=== PATIENT | female | born 1970 | race Caucasian/White ===

== ENCOUNTER 2019-05-19 09:14 | Emergency (ER) | payer OTHER, MEDICARE, MEDICAID, SELFPAY ==
[2019-05-19 09:23] VITALS: BP 135/70; PULSE 90; RESP 18; TEMP 36.2; O2SAT 99
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
[2019-05-19] MEDS: KETOROLAC (*BKC) 60 MG/2 ML VIAL IM (10:37)
[2019-05-19] MEDS: DIAZEPAM 5 MG TABLET PO (10:37)
== END 2019-05-19 11:34 | disposition home or self-care (01) ==
PROVIDERS: Emergency Provider Emergency Medicine
DX: S16.1XXA Strain of muscle, fascia and tendon at neck level, initial encounter (principal); S29.012A Strain of muscle and tendon of back wall of thorax, initial encounter; M79.7 Fibromyalgia; Z87.891 Personal history of nicotine dependence; V67.6XXA Passenger in heavy transport vehicle injured in collision with fixed or stationary object in traffic accident, initial encounter
CPT/HCPCS: 96372; 99283; A9270; J1885

== ENCOUNTER → 2020-01-25 12:59 | Outpatient (CLI) | payer MEDICARE, MEDICAID, SELFPAY ==
--- NOTE | ~2020-01-25 | MR_ITS ---
EXAMINATION: MR shoulder RT wo con DATE: 01/25/2020 13:43 INDICATION: Right shoulder pain TECHNIQUE: Magnetic resonance imaging (MRI) of the right shoulder was performed without intravenous c ontrast. Sequences included axial PD-weighted FS FSE, coronal oblique PD-weighted FS FSE, coronal obl ique T2-weighted FS FSE, sagittal PD-weighted FS FSE, and sagittal T1-weighted SE. COMPARISON: Right shoulder radiographs dated 01/17/2020 FINDINGS: Coracoacromial arch: The acromion undersurface is flat in morphology (type I) with mild lateral downsloping. The coracoacr omial ligament is normal. Mild acromioclavicular osteoarthritis. Rotator cuff: Mild supraspinatus tendinopathy with small predominantly intrasubstance tear measuring 4 mm AP along the superior facet footplate of the supraspinatus tendon. There appears be a small contained indicati on to the bursal surface along the posterior margin of the tear which appears to involve at most one half of the tendon thickness. Mild infraspinatus tendinopathy with mild thinning of the tendon with c onvex contour to the bursal sided fibers near its middle facet footplate consistent with additional s mall partial-thickness intrasubstance tear although no fluid signal intensity tear defect is apprecia manohar. Teres minor and subscapularis tendons are normal. Normal rotator cuff muscle bulk and signal. Biceps tendon, glenoid labrum and glenohumeral cartilage: Long head of the biceps tendon is normal. Tear at the 10:00-11:00 position of the posterior superior glenoid labrum. The posterior labrum is small but without discrete tear. A partial-thickness cartilag e loss with smooth chondral surface along the cephalad aspect of the humeral head. Fluid: Physiologic amount of fluid in the glenohumeral joint and biceps tendon sheath. No loose osteochondra l bodies. Small amount of fluid in the subacromial/subdeltoid bursa as well as the subcoracoid bursa consistent with mild bursitis. Bones: Bone alignment is normal. No fracture or pathologic marrow replacing process. Mild edema and minimal erosive change at the greater tuberosity. IMPRESSION: 1. Mild supraspinatus and infraspinatus tendinopathy with small predominantly intrasubstance tear wit h small bursal sided component at the distal supraspinatus and small mild intrasubstance tear at the distal infraspinatus tendons. 2. Mild glenohumeral osteoarthritis with tear along the posterior superior glenoid labrum. 3. Mild subacromial/subdeltoid and subcoracoid bursitis. Reviewed, dictated and finalized at location A. IMPRESSION: 1. Mild supraspinatus and infraspinatus tendinopathy with small predominantly i ntrasubstance tear with small bursal sided component at the distal supraspinatu s and small mild intrasubstance tear at the distal infraspinatus tendons. 2. Mild glenohumeral osteoarthritis with tear along the posterior superior babita oid labrum. 3. Mild subacromial/subdeltoid and subcoracoid bursitis.
== END ==
PROVIDERS: Visit Provider Orthopaedic Surgery
DX: M19.011 Primary osteoarthritis, right shoulder (principal); M75.51 Bursitis of right shoulder
CPT/HCPCS: 73221

== ENCOUNTER 2020-04-25 00:25 | Outpatient (CLI) | payer OTHER, MEDICARE, MEDICAID, SELFPAY ==
[2020-04-25 17:38] LABS: SARS-CoV-2 RNA PCR Negative
== END 2020-04-25 00:26 | disposition home or self-care (01) ==
LOC: ANHCOVIDDT 00:25
PROVIDERS: Visit Provider Orthopaedic Surgery
DX: Z01.812 Encounter for preprocedural laboratory examination (principal); Z20.822 Contact with and (suspected) exposure to COVID-19
CPT/HCPCS: C9803; U0003; U0005

== ENCOUNTER 2020-04-25 09:46 | Outpatient (CLI) | payer OTHER, MEDICARE, MEDICAID, SELFPAY ==
--- NOTE | 2020-04-25 10:52 | ECG_ITS ---
Measurements Intervals [place] Rate: 91 P: 30 UT: 168 QRS: 19 QRSD: 69 T: -1 QT: 330 QTc: 407 Interpretive Statements SINUS RHYTHM EARLY PRECORDIAL R/S TRANSITION NONSPECIFIC ST & T-WAVE ABNORMALITY- ANT/INF LEADS BASELINE ARTIFACT- I, II, III, AVR, AVL, AVF BORDERLINE ECG Electronically Signed On 04-25-2020 11:22:12 AERIAL ERECTOR by Willie Smith D.O.
== END 2020-04-25 09:47 | disposition home or self-care (01) ==
PROVIDERS: Visit Provider Orthopaedic Surgery
DX: Z01.818 Encounter for other preprocedural examination (principal); I10 Essential (primary) hypertension; R94.31 Abnormal electrocardiogram [ECG] [EKG]
CPT/HCPCS: 93005

== ENCOUNTER 2020-04-29 00:05 | Day surgery (SDC) | payer OTHER, MEDICARE, MEDICAID, SELFPAY ==
[2020-04-25 10:08] VITALS: BP 137/79; PULSE 92; RESP 18; TEMP 36.5; O2SAT 96; BMI 49.4
--- NOTE | 2020-04-28 09:11 | WPDANESEPPF ---
Anes - Initial Pre Proc Eval Procedure: Operation Date: 04/29/20 07:30 Proposed Procedures p Right Arthroscopic Rotator Cuff Repair, Subacromial Decompression - Ronak Quinn MD Date/Time: 04/28/20 09:11 Surgeon: Ronak Quinn MD Pre Op Diagnosis: Partial Rotator Cuff Tear of Right Shoulder Patient Data Age: 49 Gender: F Height: 1.52 m Weight: 114.8 kg Last Vital Signs Temp 36.5 C 04/25/20 10:08 Pulse 92 04/25/20 10:08 Resp 18 04/25/20 10:08 BP 137/79 04/25/20 10:08 Pulse Ox 96 04/25/20 10:08 Allergies Allergy/AdvReac Type Severity Reaction Status Date / Time No Known Allergies Allergy Verified 04/29/20 06:11 Home Medications Medication Instructions Recorded Confirmed Type albuterol sulfate [ProAir HFA] 2 puff INHALATION BID 05/19/19 04/29/20 History bupropion HCl 150 mg PO QAM 05/19/19 04/29/20 History citalopram 40 mg PO QAM 05/19/19 04/29/20 History cyclobenzaprine 5 mg PO HS PRN 05/19/19 04/29/20 History fluticasone propionate 2 spray INTRANASAL QAM PRN 05/19/19 04/29/20 History milnacipran [Savella] 50 mg PO BID 05/19/19 04/29/20 History omeprazole 40 mg PO QAM 05/19/19 04/29/20 History rizatriptan 10 mg PO BID PRN 05/19/19 04/29/20 History topiramate [Topamax] 200 mg PO BID 05/19/19 04/29/20 History hydrocodone-acetaminophen 1 tablet PO QID PRN 04/25/20 04/29/20 History Patient hx anesthesia problems: none Family hx anesthesia problems: none PMFSH Past Medical History Medical History (Updated 04/29/20 @ 06:55 by Santiago Garsia DO) Asthma Chronic, continuous use of opioids Degenerative disc disease Depression DVT (deep venous thrombosis) Fibromyalgia GERD (gastroesophageal reflux disease) Migraine CJ (obstructive sleep apnea) Polycystic ovary syndrome Restless leg syndrome Surgical History Surgical History History of ankle surgery (~2006) Left - Multiple Surgeries, including Fusion History of appendectomy (~10/03/79) History of bilateral carpal tunnel release 2002 & 2003 History of bladder surgery (~09/03/14) Sling History of cervical biopsy 1987 & 2012 History of endometrial ablation (~09/03/14) History of knee surgery Numerous Scopes - Bilateral History of lumpectomy (~09/2018) Breast History of orthopedic surgery History of reconstruction of anterior cruciate ligament tear (~01/08/04) History of total right knee replacement (~2012) Family History Family History Father Diabetes mellitus Acute myocardial infarction Mother Family history of lung cancer Sibling Diabetes mellitus Acute myocardial infarction Family history of sleep apnea Other Family history of malignant neoplasm of breast Social History Social History Smoking packs per day: 1 Smoking cigarettes per day: 20.0 Years smoked: 18 Smoking pack-years: 18.00 Smoking status: Former smoker Smoking end date: 10/02/02 Alcohol intake: former Alcohol use details: DRANK SOCIALLY YOUNG ADULT Substance use: never Living arrangements: alone Gender identity (if verbalized by the patient): Female Spiritual care concerns: No Anes - Eval Final PreProcedure Day of Procedure 04/28/20 09:11 Patient weight: morbidly obese Heart: regular rate and rhythm Lungs: clear to auscultation and normal air movement Airway: Mallampati scale class II Neurological: alert and oriented Last oral intake: >/= 8 hours ASA classification: III Emergent: no Anesthetic plan: proceed Anesthesia type and monitoring: general ETT and standard monitoring Informed Consent: The patient's anesthetic plan and its attendant risks and benefits were discussed with the patient/family/POA. Questions were solicited and answers provided to the satisfaction of the patient/family/POA.
--- NOTE | 2020-04-28 09:12 | WPDANESPNB ---
Anes - Peripheral Nerve Block Date/Time: 04/28/20 09:12 I have discussed with the patient/family/POA the placement of a peripheral nerve block for post-operative pain management, including associated risks, benefits, complications, and side effects. Alternative methods of post-operative analgesia were detailed. Questions were solicited and answers provided to the satisfaction of the patient/family/POA. Time-Out: A pre-procedural Time-Out was completed immediately before starting the procedure and confirmed: Patient Identification, Site, Procedure, Patient Position and the Availability of Requisite Equipment. Clinical Indications: Acute post-operative pain management requested by the operative surgeon. Nerve Block Insertion Note Anes-nerve block: interscalene right Patient position: supine Skin prep: chlorhexidine Needle: 22 gauge, stimulating, insulated echogenic needle. Needle length: 50 mm Technique: ultrasound Injectate: bupivacaine 0.5% with epi 5 mcg/ml (30cc) Observations: tolerated well Complications: none Procedure start time:: 718 Procedure end time:: 721
[2020-04-29] VITALS (10 sets, daily range): BP systolic 102–131; BP diastolic 67–99; PULSE 76–107; RESP 13–22; TEMP 36.4–36.6; O2SAT 90–99; BMI 49.1
[2020-04-29] MEDS: LACTATED RINGERS 1,000 ML 30 ML IV CONT ×2 (06:50→10:11)
[2020-04-29] MEDS: KETOROLAC 15 MG/ML VIAL (*BKC) IV PUSH (06:50)
[2020-04-29] MEDS: ACETAMINOPHEN 500 MG TABLET 1000 MG PO (06:50)
--- NOTE | 2020-04-29 07:18 | WPDHPUPDATE1 ---
History and Physical Update Update Date/Time: 04/29/20 07:18 History and Physical has been reviewed, including an updated exam of the patient. There are NO changes in the patient's condition. Risks, benefits, and alternatives have been discussed and questions answered. Patient agrees to proceed with procedure.
[2020-04-29] MEDS: ceFAZolin 2 GM/D5W 50 ML 2 GM/50 ML BAG IVPB (07:30)
--- NOTE | 2020-04-29 07:54 | SUR.PREOP ---
0490; PT GAVE PHONE NUMBER FOR DAUGHTER GATO. ATTEMPTED TO CALL NUMBER, ROLLS OVER TO AN 800 # WHICH IS LIFELINE. MERCED VARGAS RN NURSE TEAR DOWN MAN NOTIFIED. BRANDIE NUCLEAR WASTE MANAGEMENT ENGINEER NOTIFIED WELL. POSSIBLE NO RIDE HOME.
--- NOTE | 2020-04-29 10:12 | P.OP_ITS ---
Procedure Note - Detailed Date of procedure: 04/29/20 Pre-op diagnosis: Partial Rotator Cuff Tear of Right Shoulder Post-op diagnosis: other (1. Complete rotator cuff tear 2. Type I SLAP tear 3. Subacromial impingment) Procedure performed: 1. Arthrosocopic rotator cuff repair. 2. Arthroscopic subacromial decompression. 3. Arthroscopic SLAP tear debridement. Description of procedure: Inspection revealed a full-thickness supraspinatus tear. No significant retraction. Medium-sized tear treated with 2 bone tunnels and 6 sutures. Rip stop technique utilized with 6 points of fixation and the medial rip stop stitch. The repair was quite benavides. Bone and tissue quality were good. There was evidence for anterolateral impingement, with fraying of the undersurface of the acromion and coracoacromial ligament Decompression performed. Degenerative type 1 slap tear treated with debridement. The remaining labrum and biceps anchor were stable. No other significant abnormalities. Anesthesia: GETA and regional (interscalene block) Surgeon: Ronak Quinn MD [employer] Science Teacher: Charlee Lainez PA-C Estimated blood loss (mL): 20 Complications: None Condition: stable Disposition: PACU Findings: Physician research study assistant, Charlee Lainez PA-C, required for surgery; including patient positioning, draping, arthroscopic camera operation, maintaining instrument position, suture retrieval, wound closure, and dressing and sling placement. Operative detail: Preoperative antibiotics were given. An interscalene block was administered in the preoperative area. The patient was bought brought to the operating room. A general anesthetic was administered. The patient was carefully positioned in the lateral decubitus position. The head and neck were carefully positioned. The non operative extremity was also carefully positioned. The shoulder was prepped and draped in the usual sterile fashion. Examination was performed. The patient was morbidly obese. Standard posterior and anterior arthroscopic portals were established. Inflow achieved with the arthroscopic pump using saline and epinephrine. The glenohumeral joint was carefully inspected. The superior labrum had type 1 tearing. Biceps tendon itself was stable in its groove without evidence of tendinosis or injury. The superior labrum was treated with gentle debridement using the arthroscopic shaver and the radiofrequency probe. It was carefully manipulated and shown to be stable. The inferior labrum and posterior inferior labrum was normal. The articular cartilage appeared normal. No loose bodies or other abnormalities. The posterior rotator cuff was intact. Supraspinatus cuff appeared completely torn without retraction. The subscapularis had no instability or tear. Attention was turned to the subacromi al space. A complete bursectomy was performed. The rotator cuff and footprint were lightly debrided. The rasp was used to prepare the footprint for repair. Tear was essentially crescentic. An acromioplasty was performed with the arthroscopic elliot. The tear configuration was carefully assessed. At this point, 2 tunnels were created at the rotator cuff. One anterior and 1 posterior. The ArthroTunneler technique was utilized. Three sutures were passed through each tunnel. All sutures were then passed through the cuff tissue. The sutures were tied arthroscopically with the rip stop configuration. The arthroscopic instruments were removed. The wounds were closed with 3-0 Monocryl subcuticular suture and steri strips. There were no complications. A sling was applied and the patient brought to the recovery room.
--- NOTE | 2020-04-29 10:33 | SUR.PHASEI ---
1030 vonda bernal manager notified pt daughter(fernando) on pt condition and possible discharge time
== END 2020-04-29 12:41 | disposition home or self-care (01) ==
PROVIDERS: Visit Provider Orthopaedic Surgery
PROC: (CPT 23420; principal; 2020-04-29 07:30)
DX: S46.011A Strain of muscle(s) and tendon(s) of the rotator cuff of right shoulder, initial encounter (principal); S43.431A Superior glenoid labrum lesion of right shoulder, initial encounter; V49.9XXA Car occupant (driver) (passenger) injured in unspecified traffic accident, initial encounter; M75.41 Impingement syndrome of right shoulder; G89.18 Other acute postprocedural pain; J45.909 Unspecified asthma, uncomplicated; G47.33 Obstructive sleep apnea (adult) (pediatric); K21.9 Gastro-esophageal reflux disease without esophagitis; F32.9 Major depressive disorder, single episode, unspecified; E28.2 Polycystic ovarian syndrome; M79.7 Fibromyalgia; Z79.891 Long term (current) use of opiate analgesic; Z86.718 Personal history of other venous thrombosis and embolism; Z87.891 Personal history of nicotine dependence; E66.01 Morbid (severe) obesity due to excess calories; Z68.42 Body mass index [BMI] 45.0-49.9, adult
CPT/HCPCS: 29827; 29826; 64415; A4565; A9270; J0690; J1100; J1885; J2250; J2405; J2704; J2710; J3010; J7120

== ENCOUNTER 2020-08-06 13:39 | Outpatient (CLI) | payer MEDICARE, MEDICAID, SELFPAY ==
--- NOTE | ~2020-08-06 | MM_ITS ---
EXAMINATION: MM screening lilliana BI w aida HISTORY: Screening TECHNIQUE: Craniocaudal and mediolateral oblique 3-D tomosynthesis images were obtained and synthetic 2-D images were generated. CAD analysis was submitted and interpreted. COMPARISON: Comparison to multiple prior studies sequentially, with oldest reviewed study dated 03/04. BREAST PARENCHYMAL COMPOSITION: There are scattered areas of fibroglandular density. FINDINGS: There are developing asymmetries in the upper outer quadrants of both breasts. There are chandra rgical changes in the upper outer quadrant of the left breast. IMPRESSION: 1. Developing bilateral breast asymmetries. 2. Additional mammographic views and possible breast ultrasound are recommended. BI-RADS Category 0: Incomplete: Needs additional imaging evaluation. Reviewed, dictated and finalized at location A. IMPRESSION: 1. Developing bilateral breast asymmetries. 2. Additional mammographic views and possible breast ultrasound are recommended . BI-RADS Category 0: Incomplete: Needs additional imaging evaluation.
== END 2020-08-06 13:40 | disposition home or self-care (01) ==
LOC: ANHIMG 13:44
PROVIDERS: Visit Provider Emergency Medicine
DX: Z12.31 Encounter for screening mammogram for malignant neoplasm of breast (principal); R92.8 Other abnormal and inconclusive findings on diagnostic imaging of breast
CPT/HCPCS: 77063; 77067

== ENCOUNTER 2020-08-26 13:08 | Inpatient (IN) | payer MEDICARE, MEDICAID, SELFPAY ==
[2020-08-26] VITALS (14 sets, daily range): BP systolic 116–142; BP diastolic 60–77; PULSE 101–117; RESP 18–40; TEMP 36.3–36.6; O2SAT 89–97; BMI 48.4
--- NOTE | ~2020-08-26 | CT_ITS ---
EXAMINATION: CTA chest PE protocol DATE: 08/26/2020 18:24 CDT INDICATION: Shortness of breath. Elevated d-dimer. History of DVT. TECHNIQUE: Computed tomographic angiography (CTA) of the chest was performed with 100 mL Omnipaque-35 0 intravenous contrast. The dose-length product was 999.92 mGy-cm. Maximum intensity projection 3D-re constructions of the aorta and other arteries were constructed by the technologist on a separate work station. Automated exposure control and iterative reconstruction technique were employed. COMPARISON: None. FINDINGS: Study is technically adequate without evidence for pulmonary embolism. No significant pleur al or pericardial effusion. Moderate size hiatal hernia. No thoracic lymphadenopathy. Patchy bilatera l groundglass opacities involving all lobes, consistent with pneumonia. No endobronchial lesions. Mod erate thoracic spondylosis. IMPRESSION: 1. Patchy bilateral groundglass opacification throughout both lungs, consistent with pneumonia. 2: No evidence for pulmonary embolism. 3: Moderate size hiatal hernia. Reviewed, dictated and finalized at location A.
--- NOTE | ~2020-08-26 | XR_ITS ---
XR chest 2V 08/26/2020 14:54 Indication: Shortness of breath. Procedure: PA and lateral views of the chest Comparison: No prior studies for comparison. Findings: Patchy bilateral airspace disease, compatible with pneumonia. No pleural effusion. Heart si ze normal. No pneumothorax. No edema. Impression: 1: Patchy bilateral pneumonia. Reviewed, dictated and finalized at location A. Impression: 1: Patchy bilateral pneumonia.
--- NOTE | 2020-08-26 13:26 | ECG_ITS ---
Measurements Intervals [place] Rate: 112 P: -2 [place]: 149 QRS: 12 QRSD: 69 T: 4 QT: 334 QTc: 457 Interpretive Statements SINUS TACHYCARDIA EARLY PRECORDIAL R/S TRANSITION LOW QRS VOLTAGE IN PRECORDIAL LEADS BORDERLINE ST-T WAVE ABNORMALITY- DIFFUSE LEADS BASELINE ARTIFACT- II, III, AVF ABNORMAL ECG Electronically Signed On 08-26-2020 20:23:16 CDT by Willie Smith D.O.
[2020-08-26 13:50] LABS: Basophils Percent Auto 0.2 % (0.2-1.2); Hematocrit 44.2 % (37.0-47.0); Hemoglobin 14.3 g/dL (12.0-15.0); Immature Granulocyte Absolute 0.03 K/mm3 (0.00-0.031); Immature Granulocyte Percent A 0.5 % (0-0.5); Lymphocytes Absolute Auto 1.78 K/mm3 (0.9-3.2); Lymphocytes Percent Auto 30.1 % (18.3-44.2); Mean Corpuscular HGB Conc 32.4 g/dl (32-36); Mean Corpuscular Hemoglobin 28.1 pg (26-34); Mean Platelet Volume 9.5 fl (7.4-10.4); Monocytes Absolute Auto 0.4 K/mm3 (0.1-0.6); Monocytes Percent Auto 6.1 % (2.6-8.5); Neutrophils Absolute Auto 3.7 K/mm3 (1.3-6.7); Neutrophils Percent Auto 63.1 % (45.5-73.1); Platelet Count Result 197 k/mm3 (150-375); Red Blood Count 5.08 M/mm3 (4.2-5.4); Red Cell Distribution Width 14.1 % (11.5-14.5); White Blood Count 5.9 K/mm3 (4.5-10.0)
[2020-08-26 14:11] LABS: Alanine Aminotransferase 25 U/L (4-35); Albumin Level 3.9 g/dL (3.5-5.1); Alkaline Phosphatase 117 U/L (38-126); Anion Gap 10 mmol/L (8-16); Aspartate Amino Transferase 39 U/L (14-36); Bilirubin,Total 0.2 mg/dL (0.2-1.3); Blood Urea Nitrogen 13 mg/dL (7-17); Calcium 9.3 mg/dL (8.4-10.2); Carbon Dioxide 21 mmol/L (22-30); Chloride 106 mmol/L (98-107); Estimated CRCL calculation 75 ml/min; Estimated Glomerular Filt Rate > 60; Glucose 107 mg/dL (65-105); Potassium 3.3 mmol/L (3.4-5.0); Sodium 137 mmol/L (137-145)
[2020-08-26 15:46] LABS: Add Urine Microscopic? YES; Appearance Urine Cloudy (Clear); Bacteria Urine 4+ /hpf; Bilirubin Urine Negative (Negative); Blood Urine Negative (Negative); Color Urine Yellow (Yellow); Glucose Urine UA Negative (Negative); Ketones Urine Trace mg/dL (Negative); Leukocyte Esterase Ur 3+ LEU/UL (Negative); Mucus Urine Rare /lpf; Nitrate Urine Negative (Negative); Protein Urine Negative (Negative); Specific Grav Ur 1.011 (1.001-1.035); Squamous Epithelial Cell Urine Many /hpf (Few); Urobilinogen Urine Negative mg/dL (<2.0); WBC Urine 31-50 /hpf
[2020-08-26] MEDS: POTASSIUM CHLORIDE 20 MEQ TABLET PO (16:01)
--- NOTE | 2020-08-26 16:06 | ED.GENADULT ---
HPI - General Adult General Chief complaint: Weakness Stated complaint: Legs feel Heavy x 2-3 days,sob with activity Time Seen by Provider: 08/26/20 15:19 Source: patient History of Present Illness HPI narrative: Patient is a 49 y/o female complaining of moderate to severe leg weakness for last 3-4 days. She states that she feels her legs are heavy. There is no known alleviating or exacerbating factor. She is able to walk with a cane. She states that she normally uses cane only for long distance walking. However, she needs to use a cane all the time now. She also has some SOB. She has chronic back pain. Related Data Home Medications Medication Instructions Recorded Confirmed Savella 50 mg PO BID 05/19/19 08/26/20 albuterol sulfate [ProAir HFA] 2 puff INHALATION BID 05/19/19 08/26/20 citalopram 40 mg PO QAM 05/19/19 08/26/20 cyclobenzaprine 5 mg PO HS PRN 05/19/19 08/26/20 fluticasone propionate 2 spray INTRANASAL QAM PRN 05/19/19 08/26/20 omeprazole 40 mg PO QAM 05/19/19 08/26/20 rizatriptan 10 mg PO BID PRN 05/19/19 08/26/20 topiramate [Topamax] 200 mg PO BID 05/19/19 08/26/20 hydrocodone-acetaminophen 5 - 325 tablet PO QID 08/26/20 08/26/20 ziprasidone HCl 20 mg PO HS 08/26/20 08/26/20 Allergies Allergy/AdvReac Type Severity Reaction Status Date / Time No Known Allergies Allergy Verified 08/26/20 16:13 Review of Systems Constitutional: Constitutional: Denies chills, Denies fever(s), Denies headache(s) and Reports weakness Eyes: Eyes: Denies blurry vision ENT: Denies headache(s) and Denies neck pain Cardiovascular: Cardiovascular: Denies chest pain and Reports dyspnea Respiratory: Respiratory: Reports cough and Reports dyspnea Gastrointestinal: Gastrointestinal: Denies abdominal pain, Denies diarrhea, Denies nausea and Denies vomiting Genitourinary: Genitourinary: Denies hematuria and Denies dysuria Musculoskeletal: Musculoskeletal: Denies back pain and Denies neck pain Neurologic: Denies headache(s) and Reports weakness PMFSH Past Medical History Medical History (Updated 09/01/20 @ 23:09 by Katharina Root MD) Asthma Chronic, continuous use of opioids Degenerative disc disease Depression DVT (deep venous thrombosis) Fibromyalgia GERD (gastroesophageal reflux disease) Migraine CJ (obstructive sleep apnea) Polycystic ovary syndrome Restless leg syndrome Surgical History Surgical History History of ankle surgery (~2006) Left - Multiple Surgeries, including Fusion History of appendectomy (~10/03/79) History of bilateral carpal tunnel release 2002 & 2003 History of bladder surgery (~09/03/14) Sling History of cervical biopsy 1987 & 2012 History of endometrial ablation (~09/03/14) History of knee surgery Numerous Scopes - Bilateral History of lumpectomy (~09/2018) Breast History of orthopedic surgery History of reconstruction of anterior cruciate ligament tear (~01/08/04) History of repair of right rotator cuff (~04/29/20) RCR/ SAD/ SLAP tear debridement History of total right knee replacement (~2012) Family History Family History Father Diabetes mellitus Acute myocardial infarction Mother Family history of lung cancer Sibling Diabetes mellitus Acute myocardial infarction Family history of sleep apnea Other Family history of malignant neoplasm of breast Social History Social History Smoking packs per day: 1 Smoking cigarettes per day: 20.0 Years smoked: 18 Smoking pack-years: 18.00 Smoking status: Former smoker Smoking end date: 08/06/02 Alcohol intake: former Substance use: never Gender identity (if verbalized by the patient): Female Spiritual care concerns: No Exam Const: General: no acute distress and well developed Orientation/consciousness: oriented to person, or
[2020-08-26 16:22] LABS: D Dimer 1.12 ug/mL (<0.48)
[2020-08-26 16:44] LABS: NT Pro B Type Natriuretic Pept 27 pg/mL (5-100)
--- NOTE | 2020-08-26 20:52 | ADMGEN ---
This patient, Elba Alvarez, was admitted to [facility] Surg Room 312-01. Patient/family oriented to hospital policies and general routines including ID bracelet, bed and alarms, visiting hours, pain management, procedures, bathroom and other care routines, personal items, smoking policy, room service/diet, and visiting hours. Information on how to activate the Rapid Response Team has been discussed. Patient/Family are encouraged to report perceived risks to care and to ask questions if they do not understand what they are told or what they should do.
--- NOTE | 2020-08-26 23:15 | PM.IMHP ---
H&P: HPI History of Present Illness Date/Time: 08/26/20 23:15 Chief Complaint: Weakness Narrative: This is a 49-year-old female with past medical history significant for asthma, chronic pain, obesity, migraine, patient uses a cane for walking. Patient presented to the emergency room due to bilateral lower extremity weakness she states that her legs feel heavy has had chills fevers poor appetite cough with production of sputum which is whitish scanty shortness of breath with minimal activity no leg swelling no palpitations no PND no orthopnea. Patient lives alone in her house has not had any sick contacts of her knowledge. Preliminary workup was significant for ground-glass opacity on a CT PE protocol but no PE was found. A urinalysis showed numerous wbc's as well. Prior to this patient states that she has been in her usual state of health. Review of Systems Review of Systems: Narrative: Presented to the emergency room due to bilateral lower extremity weakness feeling heaviness in her legs she uses a cane to walk also shortness of breath with minimal activity Constitutional: Constitutional: Reports chills, Reports fatigue, Reports fever(s), Reports lethargy, Reports malaise, Reports poor appetite and Reports weakness Eyes: Eyes: Denies change in vision ENT: Denies nasal congestion, Denies nasal discharge and Denies nasal obstruction Cardiovascular: Cardiovascular: Denies chest pain at rest, Denies chest pain with activity, Denies edema, Denies irregular heart rhythm, Denies leg edema, Denies lightheadedness, Denies palpitations, Denies dyspnea on exertion, Denies orthopnea and Denies paroxysmal nocturnal dyspnea Respiratory: Respiratory: Reports cough and Reports dyspnea Comments: Productive cough of a scanty whitish sputum Gastrointestinal: Gastrointestinal: Denies dyspepsia, Denies diarrhea, Denies nausea and Denies vomiting Genitourinary: Genitourinary: Denies dysuria Musculoskeletal: Musculoskeletal: Reports back pain, Denies arthralgias, Denies joint swelling and Reports muscle weakness Integumentary/Breasts: Skin/Breast: Denies rash Neurologic: Denies focal weakness and Denies Sensory deficit (Neuro) Psychiatric: Psychiatric: Reports no additional psychiatric complaints Endocrine: Endocrine: Reports no additional endocrine complaints Hematologic/Lymphatic: Hematologic/Lymphatic: Reports no additional hematologic/lymphatic complaints Allergic/Immunologic: Allergic/Immunologic: Reports no additional allergic/immunologic complaints [facility] Past Medical History Medical History (Updated 08/26/20 @ 23:23 by Faith Campos MD) Asthma Chronic, continuous use of opioids Degenerative disc disease Depression DVT (deep venous thrombosis) Fibromyalgia GERD (gastroesophageal reflux disease) Migraine CJ (obstructive sleep apnea) Polycystic ovary syndrome Restless leg syndrome Surgical History Surgical History History of ankle surgery (~2006) Left - Multiple Surgeries, including Fusion History of appendectomy (~10/03/79) History of bilateral carpal tunnel release 2002 & 2003 History of bladder surgery (~09/03/14) Sling History of cervical biopsy 1987 & 2012 History of endometrial ablation (~09/03/14) History of knee surgery Numerous Scopes - Bilateral History of lumpectomy (~09/2018) Breast History of orthopedic surgery History of reconstruction of anterior cruciate ligament tear (~01/08/04) History of repair of right rotator cuff (~04/29/20) RCR/ SAD/ SLAP tear debridement History of total right knee replacement (~2012) Family History Family History Father Diabetes mellitus Acute myocardial infarction Mother Family history of lung cancer Sibling Diabetes mellitus Acute myocardial infarction Family history of sleep apnea Other Family history of malignant neoplasm of breast
[2020-08-27] VITALS (9 sets, daily range): BP systolic 104–120; BP diastolic 58–76; PULSE 86–105; RESP 16–18; TEMP 36.2–36.7; O2SAT 94–96
--- NOTE | 2020-08-27 00:08 | ECG_ITS ---
Measurements Intervals [place] Rate: 97 P: 29 ME: 163 QRS: 24 QRSD: 69 T: 53 QT: 356 QTc: 454 Interpretive Statements SINUS RHYTHM EARLY PRECORDIAL R/S TRANSITION LOW QRS VOLTAGE IN PRECORDIAL LEADS NONSPECIFIC ST & T-WAVE ABNORMALITY- ANTERIOR LEADS BORDERLINE ECG Electronically Signed On 08-27-2020 7:01:46 CDT by Willie Smith D.O.
[2020-08-27] MEDS: ziprasidone HCL 20 MG CAPSULE PO ×2 (00:30→21:15)
[2020-08-27] MEDS: RIZATRIPTAN BENZOATE 10 MG TABLET PO (00:31)
[2020-08-27 00:40] LABS: Glucose Point of Care 130 mg/dl (65-105)
[2020-08-27] MEDS: MORPHINE SULFATE (*CRX) 2 MG/ML INJ 1 MG IV PUSH (00:50)
[2020-08-27 01:52] LABS: Troponin I < 0.012 ng/mL (0.000-0.034)
--- NOTE | 2020-08-27 06:54 | PC.NURSE ---
At 0041 pt c/o of sternal chest pain which was beginning to travel toward her back. Rapid response was called. Pt received morphine, nitro x2 and a GI cocktail. pain went down to a 3 from an 8. By 0130 pain was rated 0. Trops. were 0.012.
[2020-08-27] MEDS: TOPIRAMATE 100 MG TABLET 200 MG PO ×2 (10:15→16:55)
[2020-08-27] MEDS: HYDROcodone/acetaminophen (*CRX) 5-325 MG TABLET 1 TAB PO ×4 (10:15→21:15)
[2020-08-27] MEDS: PANTOPRAZOLE 40 MG TABLET PO ×2 (10:15→16:55)
[2020-08-27] MEDS: CITALOPRAM HYDROBROMIDE 20 MG TABLET 40 MG PO (10:15)
[2020-08-27] MEDS: ENOXAPARIN 40 MG/0.4 ML SYRINGE SUB-Q ×2 (10:15→21:15)
--- NOTE | 2020-08-27 15:38 | PM.IMPN ---
Progress Note: A&P Assessment and Plan (1) Pneumonia: Qualifiers: Laterality: bilateral Lung location: unspecified part of lung Pneumonia type: due to unspecified organism Qualified Code(s): J18.9 - Pneumonia, unspecified organism Code(s): J18.9 - Pneumonia, unspecified organism Status: Acute Assessment and Plan: Patient started on Rocephin and Zithromax Await cultures COVID-19 swab is pending Was negative in April for a COVID-19 swab Supportive care Breathing treatment 08/27/20 15:38 This is a 49-year-old female with past medical history significant for asthma, chronic pain, obesity, migraine, patient uses a cane for walking. Patient presented to the emergency room due to bilateral lower extremity weakness she states that her legs feel heavy has had chills fevers poor appetite cough with production of sputum which is whitish scanty shortness of breath with minimal activity no leg swelling no palpitations no PND no orthopnea. Patient lives alone in her house has not had any sick contacts of her knowledge. Preliminary workup was significant for ground-glass opacity on a CT PE protocol but no PE was found. A urinalysis showed numerous wbc's as well. Prior to this patient states that she has been in her usual state of health. 08/27 patient is suspected to have pneumonia being treated azithromycin and Rocephin, patient is suspected having COVID-19 being isolated and tested, today patient is feeling much better denies any cough shortness of breath fever or chills, currently patient on room air, will continue to monitor once COVID is negative may discharge the patient home tomorrow. (2) Bilateral leg weakness: Code(s): R29.898 - Other symptoms and signs involving the musculoskeletal system Status: Acute Assessment and Plan: Likely secondary to pneumonia PT OT (3) Fibromyalgia: Code(s): M79.7 - Fibromyalgia Status: Acute Assessment and Plan: Stable Follow-up in outpatient setting Continue topiramate (4) GERD (gastroesophageal reflux disease): Code(s): K21.9 - Gastro-esophageal reflux disease without esophagitis Status: Inactive Assessment and Plan: Continue omeprazole (5) CJ (obstructive sleep apnea): Code(s): G47.33 - Obstructive sleep apnea (adult) (pediatric) Status: Inactive Assessment and Plan: Encouraged use of CPAP at nighttime (6) Polycystic ovary syndrome: Code(s): E28.2 - Polycystic ovarian syndrome Status: Inactive Assessment and Plan: Follow-up in outpatient setting (7) Degenerative disc disease: Status: Inactive Assessment and Plan: Tylenol as needed Follow-up in outpatient setting Subjective Date/time seen: 08/27/20 15:38 This is a 49-year-old female with past medical history significant for asthma, chronic pain, obesity, migraine, patient uses a cane for walking. Patient presented to the emergency room due to bilateral lower extremity weakness she states that her legs feel heavy has had chills fevers poor appetite cough with production of sputum which is whitish scanty shortness of breath with minimal activity no leg swelling no palpitations no PND no orthopnea. Patient lives alone in her house has not had any sick contacts of her knowledge. Preliminary workup was significant for ground-glass opacity on a CT PE protocol but no PE was found. A urinalysis showed numerous wbc's as well. Prior to this patient states that she has been in her usual state of health. 08/27 patient is suspected to have pneumonia being treated azithromycin and Rocephin, patient is suspected having COVID-19 being isolated and tested, today patient is feeling much better denies any cough shortness of breath fever or chills, currently patient on room air, will continue to monitor once COVID is negative may discharge the patient home tomorrow. Review of Systems Review of Systems: All systems reviewed
--- NOTE | 2020-08-27 18:14 | PHAR ---
Home medication identified in pharmacy and returned to 3medsurg unit. Savella 50mg tablets
--- NOTE | 2020-08-27 19:00 | PC.NURSE ---
Patient family brought in [facility] from home. Medication sent to pharmacy for verification.
[2020-08-27 19:27] LABS: SARS-CoV-2 RNA PCR Positive
[2020-08-27] MEDS: guaiFENesin 12 HR 600 MG TABCR PO (21:15)
[2020-08-27] MEDS: ALBUTEROL SULFATE (*SP) AEROSOL 1 PUFF 2 PUFF INHALATION (21:16)
[2020-08-28] VITALS: BP 97/53; PULSE 93; PULSE 95; RESP 18; TEMP 36.7; O2SAT 91
[2020-08-28 04:00] VITALS: BP 100/70; PULSE 81; PULSE 87; RESP 18; TEMP 36.7; O2SAT 95
[2020-08-28 08:00] VITALS: BP 102/71; PULSE 88; PULSE 90; RESP 16; TEMP 36.7; O2SAT 94
[2020-08-28] MEDS: HYDROcodone/acetaminophen (*CRX) 5-325 MG TABLET 1 TAB PO (08:47)
[2020-08-28] MEDS: TOPIRAMATE 100 MG TABLET 200 MG PO (08:48)
[2020-08-28] MEDS: PANTOPRAZOLE 40 MG TABLET PO (08:48)
[2020-08-28] MEDS: guaiFENesin 12 HR 600 MG TABCR PO (08:49)
[2020-08-28] MEDS: CITALOPRAM HYDROBROMIDE 20 MG TABLET 40 MG PO (08:50)
[2020-08-28] MEDS: ENOXAPARIN 40 MG/0.4 ML SYRINGE SUB-Q (08:50)
[2020-08-28] MEDS: ALBUTEROL SULFATE (*SP) AEROSOL 1 PUFF 2 PUFF INHALATION (08:51)
--- NOTE | 2020-08-28 10:06 | PM.DS ---
DS: Admitting Diagnosis Admitting Diagnosis Admitting Diagnosis: Shortness of breath DS: Discharge Diagnosis Discharge Diagnosis (1) Pneumonia: Qualifiers: Laterality: bilateral Lung location: unspecified part of lung Pneumonia type: due to unspecified organism Qualified Code(s): J18.9 - Pneumonia, unspecified organism Code(s): J18.9 - Pneumonia, unspecified organism Status: Acute Assessment and Plan: Patient started on Rocephin and Zithromax Await cultures COVID-19 swab is pending Was negative in April for a COVID-19 swab Supportive care Breathing treatment 08/27/20 15:38 This is a 49-year-old female with past medical history significant for asthma, chronic pain, obesity, migraine, patient uses a cane for walking. Patient presented to the emergency room due to bilateral lower extremity weakness she states that her legs feel heavy has had chills fevers poor appetite cough with production of sputum which is whitish scanty shortness of breath with minimal activity no leg swelling no palpitations no PND no orthopnea. Patient lives alone in her house has not had any sick contacts of her knowledge. Preliminary workup was significant for ground-glass opacity on a CT PE protocol but no PE was found. A urinalysis showed numerous wbc's as well. Prior to this patient states that she has been in her usual state of health. 08/27 patient is suspected to have pneumonia being treated azithromycin and Rocephin, patient is suspected having COVID-19 being isolated and tested, today patient is feeling much better denies any cough shortness of breath fever or chills, currently patient on room air, will continue to monitor once COVID is negative may discharge the patient home tomorrow. (2) Bilateral leg weakness: Code(s): R29.898 - Other symptoms and signs involving the musculoskeletal system Status: Acute Assessment and Plan: Likely secondary to pneumonia PT OT (3) Fibromyalgia: Code(s): M79.7 - Fibromyalgia Status: Acute Assessment and Plan: Stable Follow-up in outpatient setting Continue topiramate (4) GERD (gastroesophageal reflux disease): Code(s): K21.9 - Gastro-esophageal reflux disease without esophagitis Status: Inactive Assessment and Plan: Continue omeprazole (5) CJ (obstructive sleep apnea): Code(s): G47.33 - Obstructive sleep apnea (adult) (pediatric) Status: Inactive Assessment and Plan: Encouraged use of CPAP at nighttime (6) Polycystic ovary syndrome: Code(s): E28.2 - Polycystic ovarian syndrome Status: Inactive Assessment and Plan: Follow-up in outpatient setting (7) Degenerative disc disease: Status: Inactive Assessment and Plan: Tylenol as needed Follow-up in outpatient setting DS: Summary Hospital Course Reason for hospitalization: This is a 49-year-old female with past medical history significant for asthma, chronic pain, obesity, migraine, patient uses a cane for walking. Patient presented to the emergency room due to bilateral lower extremity weakness she states that her legs feel heavy has had chills fevers poor appetite cough with production of sputum which is whitish scanty shortness of breath with minimal activity no leg swelling no palpitations no PND no orthopnea. Patient lives alone in her house has not had any sick contacts of her knowledge. Preliminary workup was significant for ground-glass opacity on a CT PE protocol but no PE was found. A urinalysis showed numerous wbc's as well. Prior to this patient states that she has been in her usual state of health. Hospital Course: Covid-19 Positive pneumonia patient is COVID-19 positive, does not have any fever and not requiring any oxygen and clinically stable, will discharge patient home, patient is instructed to wear mask, keep social distancing and self quarantine for minimum of 10day, avoid general public. Follow u
== END 2020-08-28 11:06 | disposition home or self-care (01) | DRG 177 ==
LOC: ANHED 19:03 → ANH3MEDSUR 20:13
PROVIDERS: Internal Medicine; Admitting Provider Family Medicine; Emergency Provider Emergency Medicine; PCP Emergency Medicine; Visit Provider Family Medicine
DX: U07.1 COVID-19 (principal); J12.82 Pneumonia due to coronavirus disease 2019; Z68.42 Body mass index [BMI] 45.0-49.9, adult; E66.01 Morbid (severe) obesity due to excess calories; J45.909 Unspecified asthma, uncomplicated; R29.898 Other symptoms and signs involving the musculoskeletal system; M79.7 Fibromyalgia; K21.9 Gastro-esophageal reflux disease without esophagitis; G47.33 Obstructive sleep apnea (adult) (pediatric); E28.2 Polycystic ovarian syndrome; G89.29 Other chronic pain; G43.909 Migraine, unspecified, not intractable, without status migrainosus; Z79.899 Other long term (current) drug therapy; Z86.718 Personal history of other venous thrombosis and embolism; Z87.891 Personal history of nicotine dependence
CPT/HCPCS: 36415; 71046; 71275; 80053; 81001; 82948; 83880; 84443; 84484; 85025; 85380; 87040; 87077; 87086; 87088; 87186; 93005; 96365; 96372; 96375; 97161; 97165; 99285; A9270; C9803; G0378; J0456; J0696; J1650; J2270; Q9967; U0003; U0005

== ENCOUNTER 2020-09-02 00:04 | Emergency (ER) | payer MEDICARE, MEDICAID, SELFPAY ==
--- NOTE | ~2020-09-02 | US_ITS ---
EXAMINATION: US venous doppler [facility] DATE: 09/02/2020 07:37 INDICATION: Left upper limb swelling/lump. TECHNIQUE: Grayscale images without and with compression and Doppler images of the left upper extremi ty veins were obtained. COMPARISON: None. FINDINGS: Occlusive appearing noncompressible thrombus in the left cephalic and basilic veins. The left interna l jugular vein, subclavian vein, axillary vein, brachial vein, radial vein, and ulnar vein are patent . IMPRESSION: 1. Thrombosis in the left cephalic and basilic veins. Reviewed, dictated and finalized at location A.
[2020-09-02 00:05] VITALS: BP 127/96; PULSE 118; RESP 18; TEMP 36.6; O2SAT 97
[2020-09-02] MEDS: NAPROXEN 500 MG TABLET PO (00:39)
[2020-09-02] MEDS: ONDANSETRON HCL ODT 4 MG TABLET PO (00:39)
--- NOTE | 2020-09-02 01:09 | PC.NURSE ---
Pt reports pain is much better . Pt will remain in ED till Ultrasound is available in the AM. Pt updated and assisted in getting comfortable for the night. Pt
--- NOTE | 2020-09-02 01:45 | ED.EXTPRO ---
HPI - Extremity Problem General Chief complaint: Extremity Problem,Nontraumatic <Nico Corona MD - Last Filed: 09/03/20 13:27> Stated complaint: 2 LUMPS LEFT ARM <Nico Corona MD - Last Filed: 09/03/20 13:27> Time Seen by Provider: 09/02/20 00:21 <Nico Corona MD - Last Filed: 09/03/20 13:27> History of Present Illness HPI Narrative: Patient is a 49-year-old female who presents ER with left upper extremity discomfort. Patient was recently hospitalized and had an IV in both arms. She had COVID-19. Last couple days she has no discomfort and today developed redness of her bicep and forearm. She has a cord along her antecubital fossa going into her bicep. No chest pain or shortness of breath. Concerned about DVT due to the fact that she has had previous DVT and could have a higher risk of clotting due to Covid. No chest pain or shortness of breath. No fevers or chills or sweats. No additional concerns. <Nico Corona MD - Last Filed: 09/03/20 13:27> Related Data Home medications: Home Medications Medication Instructions Recorded Confirmed Savella 50 mg PO BID 05/19/19 08/26/20 albuterol sulfate [ProAir HFA] 2 puff INHALATION BID 05/19/19 08/26/20 citalopram 40 mg PO QAM 05/19/19 08/26/20 cyclobenzaprine 5 mg PO HS PRN 05/19/19 08/26/20 fluticasone propionate 2 spray INTRANASAL QAM PRN 05/19/19 08/26/20 omeprazole 40 mg PO QAM 05/19/19 08/26/20 rizatriptan 10 mg PO BID PRN 05/19/19 08/26/20 topiramate [Topamax] 200 mg PO BID 05/19/19 08/26/20 hydrocodone-acetaminophen 5 - 325 tablet PO QID 08/26/20 08/26/20 ziprasidone HCl 20 mg PO HS 08/26/20 08/26/20 <Nico Corona MD - Last Filed: 09/03/20 13:27> Allergies/Adverse reactions: Allergies Allergy/AdvReac Type Severity Reaction Status Date / Time No Known Allergies Allergy Verified 08/26/20 16:13 <Nico Corona MD - Last Filed: 09/03/20 13:27> Review of Systems Review of Systems: All systems reviewed & are unremarkable except as noted in HPI and below <Nico Corona MD - Last Filed: 09/03/20 13:27> Constitutional: Constitutional: Denies chills, Denies fever(s) and Denies weakness <Nico Corona MD - Last Filed: 09/03/20 13:27> Cardiovascular: Cardiovascular: Denies chest pain and Denies radiating jaw, neck or arm pain <Nico Corona MD - Last Filed: 09/03/20 13:27> Respiratory: Respiratory: Denies cough and Denies dyspnea <Nico Corona MD - Last Filed: 09/03/20 13:27> Gastrointestinal: Gastrointestinal: Reports nausea <Nico Corona MD - Last Filed: 09/03/20 13:27> Musculoskeletal: Comments: Left upper extremity pain and redness. <Nico Corona MD - Last Filed: 09/03/20 13:27> [facility] Past Medical History Medical History: Medical History (Updated 09/03/20 @ 00:00 by Nichole Cary) Asthma Chronic, continuous use of opioids Degenerative disc disease Depression DVT (deep venous thrombosis) Fibromyalgia GERD (gastroesophageal reflux disease) Migraine CJ (obstructive sleep apnea) Polycystic ovary syndrome Restless leg syndrome <Nico Corona MD - Last Filed: 09/03/20 13:27> Surgical History Surgical History: Surgical History History of ankle surgery (~2006) Left - Multiple Surgeries, including Fusion History of appendectomy (~10/03/79) History of bilateral carpal tunnel release 2002 & 2003 History of bladder surgery (~09/03/14) Sling History of cervical biopsy 1987 & 2012 History of endometrial ablation (~09/03/14) History of knee surgery Numerous Scopes - Bilateral History of lumpectomy (~09/2018) Breast History of orthopedic surgery History of reconstruction of anterior cruciate ligament tear (~01/08/04) History of repair of right rotator cuff (~04/29/20) RCR/ SAD/ SLAP tear debridement History of total right knee replacement (~2012) <Nico Corona MD - Last
[2020-09-02 03:01] VITALS: BP 121/82; PULSE 112; RESP 18; O2SAT 97
[2020-09-02 05:32] VITALS: BP 152/103; PULSE 110; RESP 18; O2SAT 96
[2020-09-02 06:41] VITALS: BP 148/91; PULSE 111; RESP 18; O2SAT 97
== END 2020-09-02 09:10 | disposition home or self-care (01) ==
PROVIDERS: Emergency Provider Emergency Medicine; PCP Emergency Medicine
DX: I82.622 Acute embolism and thrombosis of deep veins of left upper extremity (principal); J45.909 Unspecified asthma, uncomplicated; F32.9 Major depressive disorder, single episode, unspecified; M79.7 Fibromyalgia; K21.9 Gastro-esophageal reflux disease without esophagitis; G47.30 Sleep apnea, unspecified
CPT/HCPCS: 93971; 99284; A9270

== ENCOUNTER 2020-10-14 11:18 | Outpatient (CLI) | payer MEDICARE, MEDICAID, SELFPAY ==
--- NOTE | ~2020-10-14 | MM_ITS ---
EXAMINATION: MM diagnostic lilliana BI w aida HISTORY: Bilateral asymmetries on screening mammogram TECHNIQUE: Additional 3-D tomosynthesis images of the breasts were performed and synthetic 2-D images were generated. CAD analysis was submitted and interpreted. COMPARISON: 08/06/2020, 07/24/2018, 06/28/2018 BREAST PARENCHYMAL COMPOSITION: There are scattered areas of fibroglandular density. FINDINGS: There is a return to baseline fibroglandular appearance with spot compression of the breast s in the areas questioned on screening mammogram. A stable low-density mass is seen in the posterior third of the left breast, consistent with a benign finding. IMPRESSION: 1. No mammographic evidence of malignancy. 2. Recommend routine screening mammography in one year. BI-RADS Category 2: Benign finding(s). Reviewed, dictated and finalized at location A.
== END 2020-10-14 11:19 | disposition home or self-care (01) ==
PROVIDERS: PCP Emergency Medicine; Visit Provider Emergency Medicine
DX: R92.8 Other abnormal and inconclusive findings on diagnostic imaging of breast (principal)
CPT/HCPCS: 77062; 77066; G0279

== ENCOUNTER 2021-11-19 10:30 | Outpatient (CLI) | payer MEDICARE, MEDICAID, SELFPAY ==
--- NOTE | ~2021-11-19 | MM_ITS ---
EXAMINATION: MM screening lilliana BI w aida HISTORY: Screening mammogram TECHNIQUE: Craniocaudal and mediolateral oblique 3-D tomosynthesis images were obtained and synthetic 2-D images were generated. CAD analysis was submitted and interpreted. COMPARISON: 10/14/2020 bilateral diagnostic mammography 08/06/2020 bilateral screening mammogram BREAST PARENCHYMAL COMPOSITION: There are scattered areas of fibroglandular density. FINDINGS: Surgical clips are noted. In the upper outer quadrant of the left breast similar history of prior benign open left breast biopsy. There is no evidence of suspicious mass, calcification, or architectural distortion to suggest malign brice in either breast. There has been no suspicious interval change. IMPRESSION: 1. No mammographic evidence of malignancy. Postbiopsy change on the left. 2. Recommend routine screening mammography in one year. BI-RADS Category 2: Benign finding(s). Reviewed, dictated and finalized at location A.
== END 2021-11-19 10:31 | disposition home or self-care (01) ==
PROVIDERS: PCP Emergency Medicine; Visit Provider Emergency Medicine
DX: Z12.31 Encounter for screening mammogram for malignant neoplasm of breast (principal)
CPT/HCPCS: 77063; 77067

== ENCOUNTER 2022-06-29 18:29 | Emergency (ER) | payer MEDICARE, MEDICAID, SELFPAY ==
[2022-06-29 18:36] VITALS: BP 150/91; PULSE 99; RESP 17; TEMP 36.4; O2SAT 100
--- NOTE | 2022-06-29 20:10 | PC.NURSE ---
patient states she cant wait no 5 hours for some damn tests and left waiting area
== END 2022-06-29 20:44 | disposition left against medical advice (07) ==
PROVIDERS: PCP Emergency Medicine
DX: M79.651 Pain in right thigh (principal)
CPT/HCPCS: 99199

== ENCOUNTER 2022-09-23 10:15 | Outpatient (CLI) | payer MEDICARE, MEDICAID, SELFPAY ==
--- NOTE | 2022-10-12 13:26 | WPDSLEEPSTUD ---
Sleep Study Date of Study: 09/23/22 Ordering Provider: Nico Renee, Interpreting Physician: Sunni Samuel MD Sleep Study Type: Polysomnogram Height: 1.5 m Weight: 107.048 kg Body Mass Index: 47.6 Neck Circumference (inches): 16 [place]: 5 Reason for Sleep Study Daytime hypersomnia Sleep History Elba Alvarez is a 51-year-old female with history of asthma, fibromyalgia, anxiety and depression who presented for a sleep study for evaluation of daytime hypersomnia. She never awakens from sleep short of breath. She never awakens at night with heartburn, belching or cough. She constantly snores and she snores loudly enough that others complain. She frequently has trouble sleeping when she has a cold. She never suddenly wakes up gasping for breath during the night. She never has breathing problems at night. She occasionally sweats excessively at night. She never notices her heart pounding or beating irregularly during the night. She frequently falls asleep during the day. She never falls asleep involuntarily and never falls asleep while driving. She never experiences loss of muscle tone with strong emotion. She never feels paralyzed on waking or falling asleep. She never experiences vivid dreams upon waking or falling asleep. She does not feel afraid of going to sleep. She occasionally has nightmares. She occasionally recalls her dreams. She occasionally has thoughts racing through her mind. She occasionally feels sad or depressed. She occasionally feels anxiety or worry about things. She occasionally notices parts of her body jerk. She occasionally kicks during the night. She occasionally feels crawling or aching feelings in her legs. She occasionally feels leg pain at night. She occasionally grinds her teeth during sleep and never has morning jaw pain. She constantly feels bothered by pain during the day and is frequently awakened by pain during the night. She frequently wakes up feeling stiff, sore, and achy in the morning and constantly wakes up with pain in her neck, spine, or joints. Normal bedtime is around 11pm on the weekdays and same on the weekends, taking 45 minutes to 1 hour to fall asleep. She typically gets about 8 hours of sleep per night. Her wake up time is between 9 or 10am on the weekdays and same on the weekends. She often stays in bed for 1 hour after waking up in the morning. She typically wakes up around 4 to 5 times per night, awake 5 minutes or so each time. Habits: Former tobacco smoker. No caffeine use. No alcohol or recreational substances. FORMERLY [facility] Past Medical History Medical History Asthma Chronic, continuous use of opioids Degenerative disc disease Depression DVT (deep venous thrombosis) Fibromyalgia GERD (gastroesophageal reflux disease) Migraine CJ (obstructive sleep apnea) Polycystic ovary syndrome Restless leg syndrome Surgical History Surgical History History of ankle surgery (~2006) Left - Multiple Surgeries, including Fusion History of appendectomy (~10/03/79) History of bilateral carpal tunnel release 2002 & 2003 History of bladder surgery (~09/03/14) Sling History of cervical biopsy 1987 & 2012 History of endometrial ablation (~09/03/14) History of knee surgery Numerous Scopes - Bilateral History of lumpectomy (~09/2018) Breast History of orthopedic surgery History of reconstruction of anterior cruciate ligament tear (~01/08/04) History of repair of right rotator cuff (~04/29/20) RCR/ SAD/ SLAP tear debridement History of total right knee replacement (~2012) Family History Family History Father Diabetes mellitus Acute myocardial infarction Mother Family history of lung cancer Sibling Diabetes mellitus Acute myocardial infarction Family history of sleep apnea Other Family his
[2022-10-12 14:00] VITALS: BMI 47.6
== END 2022-09-24 06:31 | disposition home or self-care (01) ==
LOC: ANHCSM 10:15
PROVIDERS: PCP Emergency Medicine; Visit Provider Emergency Medicine
DX: G47.33 Obstructive sleep apnea (adult) (pediatric) (principal); R06.83 Snoring; G47.61 Periodic limb movement disorder
CPT/HCPCS: 95810

== ENCOUNTER 2023-04-13 09:21 | Outpatient (CLI) | payer MEDICARE, MEDICAID, SELFPAY ==
--- NOTE | ~2023-04-13 | MM_ITS ---
EXAMINATION: MM screening [facility] BI w aida HISTORY: Screening mammogram TECHNIQUE: Craniocaudal and mediolateral oblique 3-D tomosynthesis images were obtained and synthetic 2-D images were generated. CAD analysis was submitted and interpreted. COMPARISON: 11/19/2021, 10/14/2020, 08/06/2020 BREAST PARENCHYMAL COMPOSITION: There are scattered areas of fibroglandular density. FINDINGS: No suspicious mass, calcification, or architectural distortion are identified in either barry ast to suggest malignancy. There has been no suspicious interval change. IMPRESSION: 1. No mammographic evidence of malignancy. 2. Recommend routine screening mammography in one year. BI-RADS Category 1: Negative Reviewed, dictated and finalized at location A. NSIC PSYCHOLOGIST
== END 2023-04-13 09:22 | disposition home or self-care (01) ==
LOC: ANHIMG 09:24
PROVIDERS: PCP Emergency Medicine; Visit Provider Emergency Medicine
DX: Z12.31 Encounter for screening mammogram for malignant neoplasm of breast (principal)
CPT/HCPCS: 77063; 77067

== ENCOUNTER 2024-04-13 09:28 | Emergency (ER) | payer MEDICARE, MEDICAID, SELFPAY ==
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
[2024-04-13 09:38] VITALS: BP 142/91; PULSE 129; RESP 16; TEMP 36.6; O2SAT 100
[2024-04-13 09:39] VITALS: BP 142/91; PULSE 129; RESP 20; TEMP 36.5; O2SAT 97
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
[2024-04-13] MEDS: ACETAMINOPHEN 500 MG TABLET 1000 MG PO (11:34)
[2024-04-13] MEDS: KETOROLAC 30 MG/ML VIAL (*BKC) IM (11:35)
[2024-04-13 11:51] VITALS: BP 140/93; PULSE 104; RESP 16; TEMP 36.6; O2SAT 100
== END 2024-04-13 11:53 | disposition home or self-care (01) ==
LOC: ANHED 11:44
PROVIDERS: Emergency Provider Physician Assistant; PCP Emergency Medicine
DX: S39.012A Strain of muscle, fascia and tendon of lower back, initial encounter (principal); V09.9XXA Pedestrian injured in unspecified transport accident, initial encounter; Z87.891 Personal history of nicotine dependence
CPT/HCPCS: 72125; 72131; 73502; 73562; 96372; 99284; A9270; J1885

== ENCOUNTER 2024-04-15 10:10 | Emergency (ER) | payer MEDICARE, MEDICAID, SELFPAY ==
[2024-04-15 10:15] VITALS: BP 118/94; PULSE 105; RESP 20; TEMP 36.6; O2SAT 98
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
== END 2024-04-15 12:55 | disposition home or self-care (01) ==
PROVIDERS: Emergency Provider Emergency Medicine; PCP Emergency Medicine
DX: M79.10 Myalgia, unspecified site (principal); J45.909 Unspecified asthma, uncomplicated; E28.2 Polycystic ovarian syndrome; N32.81 Overactive bladder; M79.7 Fibromyalgia; K21.9 Gastro-esophageal reflux disease without esophagitis; G47.33 Obstructive sleep apnea (adult) (pediatric); G25.81 Restless legs syndrome; Z96.651 Presence of right artificial knee joint; Z87.891 Personal history of nicotine dependence; Z86.718 Personal history of other venous thrombosis and embolism; Z79.899 Other long term (current) drug therapy; Z79.01 Long term (current) use of anticoagulants
CPT/HCPCS: 99281

== ENCOUNTER 2024-11-05 09:56 | Outpatient (CLI) | payer MEDICARE, MEDICAID, SELFPAY ==
--- NOTE | ~2024-11-05 | MM_ITS ---
EXAMINATION: MM screening [facility] BI w aida HISTORY: Screening TECHNIQUE: Craniocaudal and mediolateral oblique 3-D tomosynthesis images were obtained and synthetic 2-D images were generated. CAD analysis was submitted and interpreted. COMPARISON: Comparison to multiple prior studies sequentially, with oldest reviewed study dated 06/28. BREAST PARENCHYMAL COMPOSITION: There are scattered areas of fibroglandular density. FINDINGS: There is no evidence of suspicious mass, calcification, or architectural distortion to sug gest malignancy in either breast. Multiple metallic clips in the left breast. IMPRESSION: 1. No mammographic evidence of malignancy. 2. Recommend routine screening mammography in one year. BI-RADS Category 1: Negative Reviewed, dictated and finalized at location B.
== END 2024-11-05 09:57 | disposition home or self-care (01) ==
PROVIDERS: PCP Emergency Medicine; Visit Provider Emergency Medicine
DX: Z12.31 Encounter for screening mammogram for malignant neoplasm of breast (principal)
CPT/HCPCS: 77063; 77067